=== PATIENT | male | born 1965 ===

== ENCOUNTER 2018-03-02 01:43 | Inpatient (IN) ==
[2018-03-02] MEDS ORDERED: MORPHINE 4 MG/1 ML VIAL ONE (03:18)
[2018-03-02] MEDS ORDERED: ONDANSETRON 4 MG/2 ML VIAL ONE (03:18)
[2018-03-02] MEDS ORDERED: GLUCAGON 1 MG VIAL IM PRN (03:26)
[2018-03-02] MEDS ORDERED: DEXTROSE 50% 25 GM/50 ML VIAL IV PRN (03:26)
[2018-03-02] MEDS ORDERED: MORPHINE 4 MG/1 ML VIAL IV PRN (03:26)
[2018-03-02] MEDS ORDERED: ONDANSETRON 4 MG/2 ML VIAL IM STA (03:30)
[2018-03-02] MEDS ORDERED: MORPHINE 4 MG/1 ML VIAL IV STA (03:30)
[2018-03-02] MEDS ORDERED: ONDANSETRON 4 MG/2 ML VIAL IV STA (03:34)
[2018-03-02] MEDS ORDERED: cefTRIAXone 1,000 MG in SYRINGE 1 EACH IV SCH (05:00)
[2018-03-02] MEDS: DEXTROSE 5% NACL 0.45% 1,000 ML IV SCH ×3 (05:06→23:35)
[2018-03-02] MEDS ORDERED: INFLUENZA VIRUS VACCINE 0.5 ML SYRINGE IM ONE (07:13)
[2018-03-02 07:17] LABS: Basophils % 0.4 % (0.0-0.8); Eosinophils # 0.1 10*3/uL (0.0-0.87); Eosinophils % 1.4 % (0.00-10.9); Hematocrit 35.2 VOL% (42.0-52.0); Hemoglobin 12.2 GM/DL (14.0-18.0); Immature Granulocytes % 4.5 %; Immature Granulocytes Absolute 0.33 #; Lymphocytes # 1.5 10*3/uL (1.4-4.0); Mean Corpuscular HGB Conc 34.7 GM/DL (32-36); Mean Corpuscular Hemoglobin 32 PG (27-34); Mean Corpuscular Volume 91.9 FL (87-102); Mean Platelet Volume 10.6 FL (9.6-12.0); Monocytes # 1.2 10*3/uL (0.11-0.8); Monocytes % 16.8 % (1.7-12.7); Neutrophils # 4.2 10*3/uL (1.4-7.4); Neutrophils % 56.9 % (38.7-73.9); Platelet Count 174 T/CUMM (130-400); Red Blood Count 3.83 MC/CUMM (3.8-5.5); Red Cell Distribution Width 13.2 % (9.3-17.3); White Blood Count 7.4 T/CUMM (4-12)
[2018-03-02 07:39] LABS: Calcium 7.1 MG/DL (8.5-10.1); Osmolality,Calculated 282.5 MOS/KG (273-304); Potassium 3.1 MMOL/L (3.5-5.1)
[2018-03-02] MEDS ORDERED: OFLOXACIN 0.3% OPH SOLN 10 ML BOTTLE BOTH EYES PRN (07:39)
[2018-03-02 07:42] LABS: Bilirubin,Direct 5.24 MG/DL (0.0-0.20); Bilirubin,Total 7.1 MG/DL (0.2-1.0)
[2018-03-02 07:43] LABS: Albumin 2.2 G/DL (3.4-5.0); Band Neutrophils 5 % (0-10); Bilirubin,Indirect 1.9 MG/DL (0.0-1.0); Eosinophils 1 % (0-10); Hypochromasia Slight; Lymphocytes 17 % (20-55); Metamyelocytes 1 %; Microcytosis Slight; Platelet Estimate Adequate; Segmented Neutrophils 66 % (50-85); Total Cells Counted 100; Total Protein 6.1 G/DL (6.4-8.3)
[2018-03-02] MEDS: INSULIN REGULAR 100 UNIT/ML SUBCUT SCH ×4 (11:46→21:11)
[2018-03-02 14:13] LABS: Hepatitis A Ab IgM Result Negative (Negative); Hepatitis B Core IgM Quant < 0.05 Index; Hepatitis B Core IgM Result Negative (Negative); Hepatitis B Surface Ag Quant 0.22 Index; Hepatitis B Surface Ag Result Negative (Negative); Hepatitis C Virus Ab Quant 0.15 Index; Hepatitis C Virus Ab Result Negative (Negative)
[2018-03-02] MEDS: ENOXAPARIN 40 MG/0.4 ML SYRINGE SUBCUT SCH (14:14)
[2018-03-02] MEDS: PANTOPRAZOLE 40 MG VIAL IV SCH (14:14)
[2018-03-02] MEDS: metroNIDAZOLE INJ 500 MG in PREMIX 1 EACH IV SCH ×2 (14:15→21:10)
[2018-03-02 18:57] LABS: Apearance,Urine CLEAR (Clear); Bilirubin,Urine Negative (Negative); Blood, Urine Negative (Negative); Glucose,Urine (UA) >=500 mg/dL (Negative); Ketones,Urine Negative (Negative); Mucus,Urine Occasional /LPF (Occasional); Nitrite,Urine Negative (Negative); Protein,Urine Negative; RBC,Urine <1 /HPF (0-4); Urine Color Amber (Yellow); Urine Specific Gravity 1.011 (1.001-1.035); WBC,Urine 1 /HPF (0-6)
[2018-03-02] MEDS: ONDANSETRON 4 MG/2 ML VIAL IV PRN (23:41)
[2018-03-03] MEDS: cefTRIAXone 1,000 MG in SYRINGE 1 EACH IV SCH (04:31)
[2018-03-03] MEDS: metroNIDAZOLE INJ 500 MG in PREMIX 1 EACH IV SCH ×3 (04:35→20:12)
[2018-03-03 05:40] LABS: Hemoglobin 11.9 GM/DL (14.0-18.0); Red Blood Count 3.72 MC/CUMM (3.8-5.5); White Blood Count 8.9 T/CUMM (4-12)
[2018-03-03 05:41] LABS: Basophils % 0.2 % (0.0-0.8); Eosinophils # 0.2 10*3/uL (0.0-0.87); Eosinophils % 1.8 % (0.00-10.9); Hematocrit 33.5 VOL% (42.0-52.0); Immature Granulocytes % 2.8 %; Immature Granulocytes Absolute 0.25 #; Lymphocytes # 1.6 10*3/uL (1.4-4.0); Lymphocytes % 17.7 % (21.2-54.2); Mean Corpuscular HGB Conc 35.5 GM/DL (32-36); Mean Corpuscular Hemoglobin 32 PG (27-34); Mean Corpuscular Volume 90.1 FL (87-102); Mean Platelet Volume 10.2 FL (9.6-12.0); Monocytes # 1.5 10*3/uL (0.11-0.8); Monocytes % 16.6 % (1.7-12.7); Neutrophils # 5.4 10*3/uL (1.4-7.4); Neutrophils % 60.9 % (38.7-73.9); Platelet Count 205 T/CUMM (130-400); Red Cell Distribution Width 13.1 % (9.3-17.3)
[2018-03-03 05:53] LABS: Osmolality,Calculated 274.1 MOS/KG (273-304); Potassium 2.8 MMOL/L (3.5-5.1)
[2018-03-03 06:05] LABS: Atypical Lymphocytes Few; Eosinophils 1 % (0-10); Hypochromasia 1+; Lymphocytes 14 % (20-55); Segmented Neutrophils 74 % (50-85); Total Cells Counted 100
[2018-03-03 06:06] LABS: Microcytosis 1+
[2018-03-03 06:07] LABS: Platelet Estimate Normal
[2018-03-03] MEDS: INSULIN REGULAR 100 UNIT/ML SUBCUT SCH ×4 (08:56→21:14)
[2018-03-03] MEDS: ENOXAPARIN 40 MG/0.4 ML SYRINGE SUBCUT SCH (08:57)
[2018-03-03] MEDS: PANTOPRAZOLE 40 MG VIAL IV SCH (08:57)
[2018-03-03] MEDS: DEXTROSE 5% NACL 0.45% 1,000 ML IV SCH ×3 (08:59→20:12)
[2018-03-03 09:00] LABS: Albumin 2.2 G/DL (3.4-5.0); Bilirubin,Direct 3.85 MG/DL (0.0-0.20); Bilirubin,Indirect 1.1 MG/DL (0.0-1.0); Bilirubin,Total 4.9 MG/DL (0.2-1.0); Total Protein 6.3 G/DL (6.4-8.3)
[2018-03-03] MEDS: POTASSIUM CHLORIDE RIDER 10 MEQ in PREMIX 1 EACH IV PRN ×8 (10:49→23:34)
[2018-03-04] MEDS: POTASSIUM CHLORIDE RIDER 10 MEQ in PREMIX 1 EACH IV PRN ×3 (00:38→14:05)
[2018-03-04] MEDS: metroNIDAZOLE INJ 500 MG in PREMIX 1 EACH IV SCH ×3 (04:29→20:27)
[2018-03-04] MEDS: cefTRIAXone 1,000 MG in SYRINGE 1 EACH IV SCH (04:29)
[2018-03-04 07:00] LABS: Calcium 7.2 MG/DL (8.5-10.1); Potassium 3.3 MMOL/L (3.5-5.1)
[2018-03-04 08:55] LABS: Albumin 2.1 G/DL (3.4-5.0); Bilirubin,Direct 3.27 MG/DL (0.0-0.20); Bilirubin,Indirect 0.9 MG/DL (0.0-1.0); Bilirubin,Total 4.2 MG/DL (0.2-1.0); Total Protein 6.4 G/DL (6.4-8.3)
[2018-03-04] MEDS ORDERED: MAGNESIUM SULF RIDER 2 GM in PREMIX 1 EACH IV PRN (09:22)
[2018-03-04] MEDS ORDERED: MAGNESIUM SULF RIDER 4 GM in PREMIX 1 EACH IV PRN (09:22)
[2018-03-04] MEDS: INSULIN REGULAR 100 UNIT/ML SUBCUT SCH ×4 (09:55→20:29)
[2018-03-04] MEDS: ONDANSETRON 4 MG/2 ML VIAL IV PRN (09:55)
[2018-03-04] MEDS ORDERED: ONDANSETRON 4 MG/2 ML VIAL ONE (10:03)
[2018-03-04] MEDS: ENOXAPARIN 40 MG/0.4 ML SYRINGE SUBCUT SCH (12:33)
[2018-03-04] MEDS: PANTOPRAZOLE 40 MG VIAL IV SCH (12:33)
[2018-03-04] MEDS: POTASSIUM CHLORIDE RIDER 10 MEQ in PREMIX 1 EACH IV SCH ×2 (12:34→14:05)
[2018-03-04] MEDS: DEXTROSE 5% NACL 0.45% 1,000 ML IV SCH ×2 (12:35→15:14)
[2018-03-05] MEDS: DEXTROSE 5% NACL 0.45% 1,000 ML IV SCH (00:13)
[2018-03-05] MEDS: cefTRIAXone 1,000 MG in SYRINGE 1 EACH IV SCH (04:07)
[2018-03-05] MEDS: metroNIDAZOLE INJ 500 MG in PREMIX 1 EACH IV SCH (04:10)
[2018-03-05 05:02] LABS: Basophils % 0.2 % (0.0-0.8); Eosinophils # 0.2 10*3/uL (0.0-0.87); Eosinophils % 2.5 % (0.00-10.9); Hematocrit 37.1 VOL% (42.0-52.0); Hemoglobin 12.6 GM/DL (14.0-18.0); Immature Granulocytes % 1.5 %; Immature Granulocytes Absolute 0.13 #; Lymphocytes # 1.7 10*3/uL (1.4-4.0); Mean Corpuscular Hemoglobin 31 PG (27-34); Mean Corpuscular Volume 92.5 FL (87-102); Mean Platelet Volume 9.5 FL (9.6-12.0); Monocytes # 1.3 10*3/uL (0.11-0.8); Neutrophils # 5.6 10*3/uL (1.4-7.4); Neutrophils % 62.8 % (38.7-73.9); Platelet Count 281 T/CUMM (130-400); Red Blood Count 4.01 MC/CUMM (3.8-5.5); Red Cell Distribution Width 13.7 % (9.3-17.3); White Blood Count 8.9 T/CUMM (4-12)
[2018-03-05 05:42] LABS: Albumin 2.3 G/DL (3.4-5.0); Bilirubin,Direct 2.59 MG/DL (0.0-0.20); Bilirubin,Total 3.6 MG/DL (0.2-1.0); Calcium 7.4 MG/DL (8.5-10.1); Osmolality,Calculated 275.8 MOS/KG (273-304); Potassium 3.7 MMOL/L (3.5-5.1)
[2018-03-05 08:39] VITALS: BP 150/89
[2018-03-05] MEDS: PANTOPRAZOLE 40 MG VIAL IV SCH (09:07)
[2018-03-05] MEDS: ENOXAPARIN 40 MG/0.4 ML SYRINGE SUBCUT SCH (09:09)
[2018-03-05] MEDS: INSULIN REGULAR 100 UNIT/ML SUBCUT SCH (09:10)
[2018-03-05 14:46] LABS: Mitochondrial Antibody (M2) <0.1 U
== END 2018-03-05 10:18 | disposition home or self-care (01) | DRG 443 ==
LOC: EDUNIT# → EDBD → N.ED 01:43 → N.EDINP 03:26 → N.5E 04:38